=== PATIENT | male | born 1945 | race Two or more races ===

== ENCOUNTER 2018-05-23 08:48 | Outpatient (CLI) | payer OTHER ==
[~2018-05-23 08:48] MED LIST: ASA325 MG; DIOVAN160 M1; TRICOR145 MG; ZOCOR5 MG
== END 2018-05-23 08:58 | disposition home or self-care (01) ==
LOC: LAB 08:48
DX: D64.89 Other specified anemias (principal); E11.65 Type 2 diabetes mellitus with hyperglycemia; E03.8 Other specified hypothyroidism; E78.2 Mixed hyperlipidemia

== ENCOUNTER 2018-05-29 08:42 | Outpatient (CLI) | payer OTHER | END 2018-05-29 08:55 | disposition home or self-care (01) | LOC: RAD 08:42 | DX: M75.41 Impingement syndrome of right shoulder (principal) ==

== ENCOUNTER 2020-03-03 08:28 | Outpatient (CLI) | payer OTHER | END 2020-03-03 08:35 | disposition home or self-care (01) | LOC: RAD 08:28 | PROVIDERS: ATTEND Internal Medicine Pulmonary Disease | DX: R05 Cough (principal); J01.80 Other acute sinusitis ==